=== PATIENT | male | born 1960 | race Caucasian/White ===

== ENCOUNTER 2017-03-28 05:41 | Inpatient (IN) | payer OTHER ==
[2017-03-28] VITALS (10 sets, daily range): BP systolic 123–149; BP diastolic 61–86
[~2017-03-28] VITALS: Ht 180.3 cm; Wt 95.3 kg
[2017-03-28] MEDS ORDERED: ANASTROZOLE1 MG PO (06:48)
[2017-03-28] MEDS ORDERED: Surgicel 4in x 8in TOPIC ONE (07:10)
[2017-03-28] MEDS ORDERED: Bupivacaine 0.5% Inj 30 ml vial INJ ONE (07:10)
[2017-03-28] MEDS ORDERED: LR 1000ml 1,000 ML IVLG SCH (07:36)
--- NOTE | 2017-03-28 07:36 | Anethesia Preoperative Eval ---
Anesthesia Pre-op PMH/ROS General Date of Evaluation: Mar 28, 2017 Time of Evaluation: 07:00 Anesthesiologist: Zaki ASA Score: ASA 3 Mallampati Score Class I : Soft palate, uvula, fauces, pillars visible Class II: Soft palate, uvula, fauces visible Class III: Soft palate, base of uvula visible Class IV: Only hard plate visible Mallampati Classification: Class I Surgeon: Estrella Diagnosis: left renal mass Anesthesia History: none Social History: alcohol use Family History: no anesthesia problems Allergies: Coded Allergies: PENICILLINS (Verified Allergy, Severe, Rash, 03/28/17) Medications: see eMAR Past Medical History Musculoskeletal/Integumentary: Reports: other - breast cancer s/p mastetomy, left LND PSxH Narrative: MASTECTOMY Anesthesia Pre-op Phys. Exam Physician Exam Last Vital Signs Date Time Temp Pulse Resp B/P (MAP) Pulse Ox O2 Delivery O2 Flow Rate FiO2 03/28/17 06:09 97.3 61 18 148/76 97 Room Air Constitutional: NAD Cardiovascular: RRR Respiratory: CTA Airway Exam Mallampati Score: Class II MO: full ROM: full Anesthesia Pre-op A/P Labs hb 15 Studies Pre-op Studies: EKG Risk Assessment & Plan Assessment: ASA 3 Plan: GETA Status Change Before Surgery: Yes - UTI treated by operating urologist Felecia Haines M.D. Mar 28, 2017 07:36
[2017-03-28] MEDS ORDERED: fentaNYL 100 mcg/2 mL IV PRN (07:45)
[2017-03-28] MEDS ORDERED: Hydromorphone 0.5mg/0.5ml inj IVP PRN (07:45)
[2017-03-28] MEDS ORDERED: Meperidine 25mg/0.5ml Inj (FOR RIGORS ONLY) IV PRN (07:45)
--- NOTE | 2017-03-28 07:56 | Pre-Procedure Note/Attestation ---
Pre-Procedure Note/Attestation Complete Prior to Procedure Planned Procedure: left Procedure Narrative: Left laparoscopic partial vs radical nephrectomy Indications for Procedure Pre-Operative Diagnosis: left renal mass Attestation I attest that I discussed the nature of the procedure; its benefits; risks and complications; and alternatives (and the risks and benefits of such alternatives ), prior to the procedure, with the patient (or the patient's legal enrollment eligibility representative). I attest that, if there was a reasonable possibility of needing a blood transfusion, the patient (or the patient's legal enrollment eligibility representative) was given the [facility] standardized written summary, pursuant to the Alex Porum Blood Safety Act ([place] Health and Safety Code # 1645, as amended). I attest that I re-evaluated the patient just prior to the surgery and that there has been no change in the patient's H&P, except as documented below: Cb De La Rosa MD Mar 28, 2017 07:56
[2017-03-28] MEDS ORDERED: Glycopyrrolate 0.2mg/ml 1ml Vial ONE (08:00)
[2017-03-28] MEDS ORDERED: ePHEDrine 50mg/ml Inj ONE (08:00)
[2017-03-28] MEDS ORDERED: fentaNYL 250mcg/5ml ONE (08:00)
[2017-03-28] MEDS ORDERED: Midazolam 2mg/2ml Inj ONE (08:00)
[2017-03-28] MEDS ORDERED: Lidocaine 1% MPF 10mg/ml 5ml ONE (08:00)
[2017-03-28] MEDS ORDERED: LR 1000ml ONE (08:00)
[2017-03-28] MEDS ORDERED: Neostigmine 1mg/ml 10ml Inj ONE (08:00)
[2017-03-28] MEDS ORDERED: Sodium Chloride 10ml vial INJ ONE (08:00)
[2017-03-28] MEDS ORDERED: Dexamethasone 4mg/ml vial ONE (08:00)
[2017-03-28] MEDS ORDERED: Sterile Water Irrig 1000ml IRRIG ONE (08:00)
[2017-03-28] MEDS ORDERED: Propofol 200mg/20ml IV ONE (08:00)
[2017-03-28] MEDS ORDERED: Zemuron 50mg/5ml Inj IV ONE (08:00)
[2017-03-28] MEDS ORDERED: Lacri-Lube Opth Oint 3.5gm ONE (08:07)
[2017-03-28] MEDS ORDERED: ceFAZolin 1gm/50ml Premix 50 ML IV ONE (08:21)
[2017-03-28] MEDS ORDERED: NS Irrig 1000ml IRRIG ONE (08:40)
--- NOTE | 2017-03-28 09:40 | Brief Operative Note ---
Immediate Post Operative Note Operative Note Pre-op Diagnosis: left renal mass Procedure: left laparoscopic nephrectomy Post-op Diagnosis: same Post-op Diagnosis: same as pre-op Surgeon: Anthony De La Rosa Anesthesia: general Specimen: yes Complications: none Condition: stable Fluids: 500 Estimated Blood Loss: minimal Implant(s) used?: No Cb De La Rosa MD Mar 28, 2017 09:40
[2017-03-28] MEDS ORDERED: Metoclopramide 10mg/2ml Inj IVP PRN (09:45)
--- NOTE | 2017-03-28 10:02 | Immediate Post-Op Evaluation ---
Immediate Post-Op Evalulation Immediate Post-Op Evalulation Procedure: lap assisted radical nephrectomy Date of Evaluation: Mar 28, 2017 Time of Evaluation: 09:44 IV Fluids: 1200 LR Blood Products: NONE Estimated Blood Loss: MINIMAL Urinary Output: 75 Blood Pressure Systolic: 149 Blood Pressure Diastolic: 61 Pulse Rate: 57 Respiratory Rate: 18 O2 Sat by Pulse Oximetry: 100 Temperature (Fahrenheit): 97.3 Pain Score (1-10): 1 Nausea: No Vomiting: No Complications NONE Patient Status: awake Hydration Status: adequate Drug: CIPRO, ANCEF Given Within 1 Hr of Incision: Yes Time Given: 07:53 Felecia Haines M.D. Mar 28, 2017 10:02
[2017-03-28 10:18] LABS: BASOPHILS % (AUTO) 0.3 % (0.0-2.0); EOSINOPHILS % (AUTO) 0.8 % (0.0-3.0); LYMPHOCYTES % (AUTO) 11.9 % (20.0-45.0); MEAN CORPUSCULAR HGB CONC 33.4 G/DL (32.0-36.0); MEAN CORPUSCULAR VOLUME 90 FL (80-99); MEAN PLATELET VOLUME 6.5 FL (6.5-10.1); MONOCYTES % (AUTO) 2.3 % (1.0-10.0); NEUTROPHILS % (AUTO) 84.6 % (45.0-75.0); PLATELET COUNT 360 K/UL (150-450); RED BLOOD COUNT 4.98 M/UL (4.70-6.10); RED CELL DISTRIBUTION WIDTH 11.6 % (11.6-14.8); WHITE BLOOD COUNT 14.6 K/UL (4.8-10.8)
[2017-03-28 10:28] LABS: CALCIUM 8.8 mg/dL (8.6-10.2); CREATININE 1.3 mg/dL (0.7-1.2); GLOMERULAR FILTRATION RATE 56.7 mL/min (>60); POTASSIUM 4.4 mEQ/L (3.4-4.9)
[2017-03-28] MEDS ORDERED: Norco 5mg/325mg tab ORAL PRN (13:00)
[2017-03-28] MEDS: D5 1/2NS w/KCl 20mEq 1,000 ML IV SCH (13:19)
--- NOTE | 2017-03-28 14:31 | History and Physical ---
History of Present Illness General Date patient seen: Mar 28, 2017 Reason for Hospitalization: nephrectomy Present Illness HPI 57 year old male with hx of breast cancer, was recently diagnosed with renal cancer. He is admitted for nephrectomy. Post operatively he is admitted for surgical floor for post-op care. Allergies: Coded Allergies: PENICILLINS (Verified Allergy, Severe, Rash, 03/28/17) Medication History Scheduled Anastrozole* (Arimidex*), 1 MG PO DAILY, (Reported) Patient History Healthcare decision maker manda() Resuscitation status Full Code Advanced Directive on File No Past Medical/Surgical History Past Medical/Surgical History: (1) Breast cancer Review of Systems Constitutional: Reports: no symptoms Physical Exam General Appearance: WD/WN Lines, tubes and drains: peripheral, central line HEENT: normocephalic, atraumatic Neck: non-tender, supple Respiratory/Chest: chest wall non-tender, lungs clear Cardiovascular/Chest: normal peripheral pulses, normal rate Abdomen: normal bowel sounds, non tender Genitourinary/Rectal: normal rectal exam, normal prostate exam Extremities: normal range of motion Skin Exam: normal pigmentation Neurologic: computer systems security administrator II-XII grossly normal Last 24 Hour Vital Signs Date Time Temp Pulse Resp B/P (MAP) Pulse Ox O2 Delivery O2 Flow Rate FiO2 03/28/17 13:37 97.3 56 16 138/80 99 56 03/28/17 10:30 97.9 54 14 146/86 98 Nasal Cannula 3.0 03/28/17 10:20 60 16 135/74 95 Nasal Cannula 3.0 03/28/17 10:05 53 18 136/84 95 Nasal Cannula 3.0 03/28/17 10:02 57 18 100 03/28/17 09:55 51 17 141/67 97 Nasal Cannula 3.0 03/28/17 09:44 52 12 139/81 97 Nasal Cannula 3.0 03/28/17 09:39 58 16 142/79 97 Simple Mask 6.0 03/28/17 09:34 97.8 56 16 149/61 97 Simple Mask 6.0 03/28/17 06:09 97.3 61 18 148/76 97 Room Air Intake and Output 03/28/17 03/29/17 19:00 07:00 Intake Total 1300 ml Output Total 105 ml Balance 1195 ml Intake IV Total 1300 ml Output Urine Total 75 ml Estimated Blood Loss 30 ml Laboratory Tests Test 03/28/17 10:10 White Blood Count 14.6 K/UL (4.8-10.8) H Red Blood Count 4.98 M/UL (4.70-6.10) Hemoglobin 15.0 G/DL (14.2-18.0) Hematocrit 44.8 % (42.0-52.0) Mean Corpuscular Volume 90 FL (80-99) Mean Corpuscular Hemoglobin 30.0 PG (27.0-31.0) Mean Corpuscular Hemoglobin Concent 33.4 G/DL (32.0-36.0) Red Cell Distribution Width 11.6 % (11.6-14.8) Platelet Count 360 K/UL (150-450) Mean Platelet Volume 6.5 FL (6.5-10.1) Neutrophils (%) (Auto) 84.6 % (45.0-75.0) H Lymphocytes (%) (Auto) 11.9 % (20.0-45.0) L Monocytes (%) (Auto) 2.3 % (1.0-10.0) Eosinophils (%) (Auto) 0.8 % (0.0-3.0) Basophils (%) (Auto) 0.3 % (0.0-2.0) Sodium Level 139 mEQ/L (135-145) Potassium Level 4.4 mEQ/L (3.4-4.9) Chloride Level 100 mEQ/L (98-107) Carbon Dioxide Level 29 mEQ/L (20-30) Anion Gap 10 (5-15) Blood Urea Nitrogen 14 mg/dL (7-23) Creatinine 1.3 mg/dL (0.7-1.2) H Estimat Glomerular Filtration Rate 56.7 mL/min (>60) Glucose Level 163 mg/dL (74-106) H Calcium Level 8.8 mg/dL (8.6-10.2) Height (Feet): 5 Height (Inches): 11.00 Weight (Pounds): 210 Medications Current Medications Medications (Trade) Dose Ordered Sig/Karli Route PRN Reason Start Time Stop Time Status Last Admin Dose Admin Acetaminophen (Tylenol) 650 mg Q4H PRN ORAL FEVER>100.5 03/28/17 13:00 04/27/17 12:59 Acetaminophen (Tylenol) 650 mg Q6H PRN ORAL Mild Pain (Pain Scale 1-3) 03/28/17 13:00 04/27/17 12:59 Acetaminophen/ Hydrocodone Bitart ([place] 5/325) 1 tab Q4H PRN ORAL Moderate Pain (Pain Scale 4-6) 03/28/17 13:00 04/04/17 12:59 Dextrose/ Electrolytes 1,000 ml @ 100 mls/hr Q10H IV 03/28/17 13:30 04/27/17 13:29 03/28/17 13:19 Docusate Sodium (Colace) 100 mg TWICE A DAY ORAL 03/28/17 18:00 04/27/17 17:59 Hydromorphone HCl (Dilaudid) 1 mg Q3H PRN IVP pain score 4-6 03/28/17 13:00 04/04/17 12:59 Ondansetron HCl (Zofran) 4 mg Q6H PRN IVP Nausea & Vomiting 03/28/17 13:00 04/27/17 12:59 Temazepam (Restoril) 7.5 mg QHS PRN ORAL Insomnia 03/28/17 21:00 04/04/17 20:59 Assessment/Plan Problem List: (1) S/p nephrectomy ICD Codes: Z90.5 - Acquired absence of kidney SNOMED: [id number], [id number] (2) Renal mass ICD Codes: N28.89 - Other specified disorders of kidney and ureter SNOMED: 938867660 Assessment/Plan iv fluids keep the gonzalez check electrolytes symptomatic treatment TAMMIE MESSER Mar 28, 2017 14:31
[2017-03-28] MEDS: HYDROmorphone 1mg/ml Carpuject IVP PRN ×2 (15:27→20:24)
[2017-03-28] MEDS: Docusate 100mg cap ORAL SCH (18:00)
[2017-03-29] VITALS: BP 111/61
[2017-03-29] MEDS: HYDROmorphone 1mg/ml Carpuject IVP PRN (00:02)
[2017-03-29] MEDS: D5 1/2NS w/KCl 20mEq 1,000 ML IV SCH ×4 (01:00→11:17)
[2017-03-29 04:00] VITALS: BP 102/64
[2017-03-29 08:02] LABS: BASOPHILS % (AUTO) 0.4 % (0.0-2.0); EOSINOPHILS % (AUTO) 0.1 % (0.0-3.0); LYMPHOCYTES % (AUTO) 10.8 % (20.0-45.0); MEAN CORPUSCULAR HEMOGLOBIN 31.5 PG (27.0-31.0); MEAN CORPUSCULAR VOLUME 90 FL (80-99); MEAN PLATELET VOLUME 6.4 FL (6.5-10.1); MONOCYTES % (AUTO) 8.7 % (1.0-10.0); PLATELET COUNT 327 K/UL (150-450); RED BLOOD COUNT 4.23 M/UL (4.70-6.10); RED CELL DISTRIBUTION WIDTH 11.8 % (11.6-14.8); WHITE BLOOD COUNT 11.7 K/UL (4.8-10.8)
[2017-03-29 08:18] LABS: ALBUMIN/GLOBULIN RATIO 1.3 (1.0-2.7); CALCIUM 8.5 mg/dL (8.6-10.2); CREATININE 1.8 mg/dL (0.7-1.2); GLOMERULAR FILTRATION RATE 38.9 mL/min (>60); POTASSIUM 4.5 mEQ/L (3.4-4.9); TOTAL PROTEIN 6.2 g/dL (6.6-8.7)
[2017-03-29 08:27] LABS: CRP QUANT 3.8 mg/dL (< 0.5); MAGNESIUM 2.7 mg/dL (1.7-2.5); PHOSPHORUS 3.7 mg/dL (2.5-4.8)
[2017-03-29] MEDS: Docusate 100mg cap ORAL SCH ×2 (09:16→18:55)
--- NOTE | 2017-03-29 09:16 | 48 Hour Post Anesthesia Eval ---
Post Anesthesia Evaluation Procedure: lap assisted radical nephrectomy Date of Evaluation: Mar 29, 2017 Time of Evaluation: 09:15 Blood Pressure Systolic: 126 0: 59 Pulse Rate: 72 Respiratory Rate: 20 Temperature (Fahrenheit): 97.6 O2 Sat by Pulse Oximetry: 99 Airway: patent Nausea: No Vomiting: No Pain Intensity: 3 Hydration Status: adequate Cardiopulmonary Status: stable Mental Status/LOC: patient returned to baseline Follow-up Care/Observations: n/a Post-Anesthesia Complications: none Follow-up care needed: N/A LETI WALLACE M.D. Mar 29, 2017 09:16
--- NOTE | 2017-03-29 10:04 | Pulmonology Progress Note ---
Assessment/Plan Assessment/Plan ASSESSMENT left renal mass s/p 03/28 left laparoscopic nephrectomy hx of left infiltrating ductal breast Ca with s/p mastectomy leukocytosis JOMAR/ elevated creatinine PLAN OF CARE MS floor IVF , increase rate ( creat up) pain management IS, encourage to use abx , leuk trending down bowel regimen ambulate NPO until bowel function returned case discussed and evaluated by supervising physician Subjective Allergies: Coded Allergies: PENICILLINS (Verified Allergy, Severe, Rash, 03/28/17) Subjective leukocytosis trending down,afebrile not nauseous today ( as opposed to 03/28) creat up to 1.8 Objective Last 24 Hour Vital Signs Date Time Temp Pulse Resp B/P (MAP) Pulse Ox O2 Delivery O2 Flow Rate FiO2 03/29/17 09:16 72 20 99 03/29/17 04:00 98.4 81 18 102/64 97 Nasal Cannula 3.0 03/29/17 00:00 98.7 75 18 111/61 95 Nasal Cannula 3.0 03/28/17 20:00 98.0 78 18 123/73 95 Nasal Cannula 3.0 03/28/17 13:37 97.3 56 16 138/80 99 56 03/28/17 10:30 97.9 54 14 146/86 98 Nasal Cannula 3.0 03/28/17 10:20 60 16 135/74 95 Nasal Cannula 3.0 03/28/17 10:05 53 18 136/84 95 Nasal Cannula 3.0 03/28/17 10:02 57 18 100 General Appearance: WD/WN, no acute distress HEENT: normocephalic, atraumatic, anicteric, PERRL Respiratory/Chest: lungs clear, normal breath sounds, no respiratory distress, no accessory muscle use Cardiovascular: normal rate, regular rhythm, no JVD Abdomen: absent bowel sounds, other - few laparascopic incisions with small dressings C/D/I Genitourinary: other - [place] Extremities: no edema Skin: other - left mid anterior and lateral chest wall scar ( postmastectomy) , healed Neurologic/Psychiatric: no motor/sensory deficits, alert, oriented x 3, responsive Laboratory Tests 03/28/17 10:10: White Blood Count 14.6H, Red Blood Count 4.98, Hemoglobin 15.0, Hematocrit 44.8 , Mean Corpuscular Volume 90, Mean Corpuscular Hemoglobin 30.0, Mean Corpuscular Hemoglobin Concent 33.4, Red Cell Distribution Width 11.6, Platelet Count 360, Mean Platelet Volume 6.5, Neutrophils (%) (Auto) 84.6H, Lymphocytes ( %) (Auto) 11.9L, Monocytes (%) (Auto) 2.3, Eosinophils (%) (Auto) 0.8, Basophils (%) (Auto) 0.3, Sodium Level 139, Potassium Level 4.4, Chloride Level 100, Carbon Dioxide Level 29, Anion Gap 10, Blood Urea Nitrogen 14, Creatinine 1.3H, Estimat Glomerular Filtration Rate 56.7, Glucose Level 163H, Calcium Level 8.8 03/29/17 07:15: White Blood Count 11.7H, Red Blood Count 4.23L, Hemoglobin 13.3L, Hematocrit 38.1L, Mean Corpuscular Volume 90, Mean Corpuscular Hemoglobin 31.5H, Mean Corpuscular Hemoglobin Concent 35.0, Red Cell Distribution Width 11.8, Platelet Count 327, Mean Platelet Volume 6.4L, Neutrophils (%) (Auto) 80.0H, Lymphocytes (%) (Auto) 10.8L, Monocytes (%) (Auto) 8.7, Eosinophils (%) (Auto) 0.1, Basophils (%) (Auto) 0.4, Sodium Level 139, Potassium Level 4.5, Chloride Level 101, Carbon Dioxide Level 26, Anion Gap 12, Blood Urea Nitrogen 17, Creatinine 1.8H, Estimat Glomerular Filtration Rate 38.9, Glucose Level 131H, Calcium Level 8.5L, Erythrocyte Sedimentation Rate [Pending], Phosphorus Level 3.7, Magnesium Level 2.7H, Total Bilirubin 0.5, Aspartate Amino Transf (AST/SGOT) 13 , Alanine Aminotransferase (ALT/SGPT) 14, Alkaline Phosphatase 37L, C-Reactive Protein, Quantitative 3.8H, Total Protein 6.2L, Albumin 3.6, Globulin 2.6, Albumin/Globulin Ratio 1.3 Current Medications Medications (Trade) Dose Ordered Sig/Karli Route PRN Reason Start Time Stop Time Status Last Admin Dose Admin Acetaminophen (Tylenol) 650 mg Q4H PRN ORAL FEVER>100.5 03/28/17 13:00 04/27/17 12:59 Acetaminophen (Tylenol) 650 mg Q6H PRN ORAL Mild Pain (Pain Scale 1-3) 03/28/17 13:00 04/27/17 12:59 Acetaminophen/ Hydrocodone Bitart ([place] 5/325) 1 tab Q4H PRN ORAL Moderate Pain (Pain Scale 4-6) 03/28/17 13:00 04/04/17 12:59 Dextrose/ Electrolytes 1,000 ml @ 100 mls/hr Q10H IV 03/28/17 13:30 04/27/17 13:29 03/29/17 01:00 Docusate Sodium (Colace) 100 mg TWICE A DAY ORAL 03/28/17 18:00 04/27/17 17:59 03/29/17 09:16 Hydromorphone HCl (Dilaudid) 1 mg Q3H PRN IVP pain score 4-6 03/28/17 13:00 04/04/17 12:59 03/29/17 00:02 Ondansetron HCl (Zofran) 4 mg Q6H PRN IVP Nausea & Vomiting 03/28/17 13:00 04/27/17 12:59 03/28/17 20:12 Temazepam (Restoril) 7.5 mg QHS PRN ORAL Insomnia 03/28/17 21:00 04/04/17 20:59 Lisa Thomas NP (Vanchtein) Mar 29, 2017 10:04
[2017-03-29 15:27] LABS: ABG PCO2 36.6 mmHg (35.0-45.0)
--- NOTE | 2017-03-29 15:27 | Diagnostic Imaging Report ---
Indication: Shortness of breath Technique: One view of the chest Comparison: none Findings: There is a small amount of free air under the right hemidiaphragm. The right lung and pleural space are clear. There is some patchy atelectasis and possibly consolidation at the left lung base. The left lateral hemidiaphragm is slightly obscured, and there may be a small amount of pleural fluid. The heart size is upper limits of normal. Upper mediastinum is unremarkable. Impression: Free air under the right hemidiaphragm. Per discussion with patient's nurse, patient is recently status post abdominal surgery (nephrectomy), which presumably explains the pneumoperitoneum Patchy atelectasis and possibly consolidation at the left lung base Small left pleural effusion not excludable Patient charge nurse notified of the findings by phone at the time of interpretation
[2017-03-29 15:28] LABS: ABG ALLEN TEST POSITIVE; ABG BASE EXCESS 1.6
[2017-03-29 16:00] VITALS: BP 120/73
[2017-03-29] MEDS ORDERED: DuoNeb 0.5-3(2.5)mg/3ml neb HHN PRN (16:15)
[2017-03-29] MEDS ORDERED: VANCOMYCIN IVPB SCH (17:30)
[2017-03-29] MEDS ORDERED: D5W IVPB SCH (17:30)
[2017-03-29] MEDS ORDERED: DuoNeb 0.5-3(2.5)mg/3ml neb HHN SCH (19:00)
[2017-03-29 20:00] VITALS: BP 121/75
[2017-03-29] MEDS: DuoNeb 0.5-3(2.5)mg/3ml neb HHN SCH (20:41)
[2017-03-30] VITALS: BP 146/84
[2017-03-30] MEDS: D5 1/2NS w/KCl 20mEq 1,000 ML IV SCH
[2017-03-30] MEDS: HYDROmorphone 1mg/ml Carpuject IVP PRN ×2 (00:10→04:55)
[2017-03-30 04:00] VITALS: BP 155/94
[2017-03-30 07:15] LABS: BASOPHILS % (AUTO) 0.5 % (0.0-2.0); LYMPHOCYTES % (AUTO) 9.5 % (20.0-45.0); MEAN CORPUSCULAR HGB CONC 34.2 G/DL (32.0-36.0); MEAN CORPUSCULAR VOLUME 90 FL (80-99); MEAN PLATELET VOLUME 6.6 FL (6.5-10.1); MONOCYTES % (AUTO) 6.9 % (1.0-10.0); PLATELET COUNT 321 K/UL (150-450); RED BLOOD COUNT 4.76 M/UL (4.70-6.10); RED CELL DISTRIBUTION WIDTH 11.7 % (11.6-14.8); WHITE BLOOD COUNT 11.4 K/UL (4.8-10.8)
[2017-03-30 07:20] LABS: CALCIUM 8.8 mg/dL (8.6-10.2); CREATININE 1.7 mg/dL (0.7-1.2); GLOMERULAR FILTRATION RATE 41.6 mL/min (>60); POTASSIUM 4.7 mEQ/L (3.4-4.9)
[2017-03-30] MEDS: Docusate 100mg cap ORAL SCH ×2 (09:17→18:41)
--- NOTE | 2017-03-30 09:55 | Diagnostic Imaging Report ---
Indication: SOB Technique: One view of the chest Comparison: 3 hours earlier Findings: Band of atelectasis is seen in the left midlung. Band of atelectasis is also seen the left lung base. Findings are essentially unchanged from the earlier study. Lungs and pleural spaces are otherwise clear. Small postoperative pneumoperitoneum is again demonstrated Impression: Unchanged, over 3 hours, findings as above. This agrees with the preliminary interpretation provided overnight by Dr. Gonzalez
[2017-03-30] MEDS: DuoNeb 0.5-3(2.5)mg/3ml neb HHN SCH ×3 (10:27→19:48)
[2017-03-30] MEDS ORDERED: Milk of Magnesia 30ml Ud ORAL ONE (10:30)
[2017-03-30] MEDS ORDERED: Tubing IV Secondary IV ONE (10:40)
--- NOTE | 2017-03-30 11:14 | Pulmonology Progress Note ---
Assessment/Plan Assessment/Plan ASSESSMENT left renal mass s/p 03/28 left laparoscopic nephrectomy hx of left infiltrating ductal breast Ca with s/p mastectomy leukocytosis atelectasis possible PNA JOMAR/ elevated creatinine PLAN OF CARE MS floor IVF pain management CL diet,tolerates advance as per surgery a/emetic prn CXR 03/29 with free air under the right hemidiaphragm (related to recent laparoscopic nephrectomy) Patchy atelectasis and possibly consolidation at the left lung base O2 to keep sat above 92% pulmonary toilet abx stressed importance of using IS ambulate Venous Duplex - negative bowel regimen case discussed and evaluated by supervising physician Subjective Allergies: Coded Allergies: PENICILLINS (Verified Allergy, Severe, Rash, 03/28/17) Subjective mild leukocytosis , afebrile on RA sat stable CXR with evidence of PNA 03/29 when had episode of hyposemia, a creat down to 1.7 Objective Last 24 Hour Vital Signs Date Time Temp Pulse Resp B/P (MAP) Pulse Ox O2 Delivery O2 Flow Rate FiO2 03/30/17 09:39 32 03/30/17 09:39 71 18 98 Nasal Cannula 28.0 03/30/17 09:32 72 16 96 Nasal Cannula 28 03/30/17 04:00 98.9 72 19 155/94 94 Nasal Cannula 3.0 03/30/17 00:00 98.2 79 19 146/84 99 Nasal Cannula 3.0 03/29/17 20:44 72 16 2.0 28 03/29/17 20:44 72 16 98 Nasal Cannula 28 03/29/17 20:00 98.1 74 19 121/75 95 Room Air 03/29/17 16:00 98.8 70 20 120/73 96 Nasal Cannula 3.0 Objective General Appearance: WD/WN, no acute distress HEENT: normocephalic, atraumatic, anicteric, PERRL Respiratory/Chest: lungs clear, normal breath sounds, no respiratory distress, no accessory muscle use Cardiovascular: normal rate, regular rhythm, no JVD Abdomen: absent bowel sounds, few laparoscopic incisions with small dressings C/D/I Genitourinary: other - [place] Extremities: no edema Skin: left mid anterior and lateral chest wall scar ( postmastectomy) , healed Neurologic/Psychiatric: no motor/sensory deficits, alert, oriented x 3, responsive Microbiology Date/Time Source Procedure Growth Status 03/28/17 06:35 Nasal Nares MRSA Culture - Final NO METHICILLIN RESISTANT STAPH AUREUS... Complete Laboratory Tests 03/29/17 15:25: Arterial Blood pH 7.456H, Arterial Blood Partial Pressure CO2 36.6, Arterial Blood Partial Pressure O2 80.6, Arterial Blood HCO3 25.2, Arterial Blood Oxygen Saturation 96.1, Arterial Blood Base Excess 1.6, Michael Test Positive 03/30/17 05:10: White Blood Count 11.4H, Red Blood Count 4.76, Hemoglobin 14.7, Hematocrit 43.0 , Mean Corpuscular Volume 90, Mean Corpuscular Hemoglobin 31.0, Mean Corpuscular Hemoglobin Concent 34.2, Red Cell Distribution Width 11.7, Platelet Count 321, Mean Platelet Volume 6.6, Neutrophils (%) (Auto) 83.0H, Lymphocytes ( %) (Auto) 9.5L, Monocytes (%) (Auto) 6.9, Eosinophils (%) (Auto) 0.0, Basophils (%) (Auto) 0.5, Sodium Level 139, Potassium Level 4.7, Chloride Level 101, Carbon Dioxide Level 26, Anion Gap 12, Blood Urea Nitrogen 14, Creatinine 1.7H, Estimat Glomerular Filtration Rate 41.6, Glucose Level 121H, Calcium Level 8.8 Current Medications Medications (Trade) Dose Ordered Sig/Karli Route PRN Reason Start Time Stop Time Status Last Admin Dose Admin Acetaminophen (Tylenol) 650 mg Q4H PRN ORAL FEVER>100.5 03/28/17 13:00 04/27/17 12:59 Acetaminophen (Tylenol) 650 mg Q6H PRN ORAL Mild Pain (Pain Scale 1-3) 03/28/17 13:00 04/27/17 12:59 Acetaminophen/ Hydrocodone Bitart ([place] 5/325) 1 tab Q4H PRN ORAL Moderate Pain (Pain Scale 4-6) 03/28/17 13:00 04/04/17 12:59 03/29/17 20:00 Albuterol/ Ipratropium (DuoNeb 0.5-3(2.5)mg/3ml) 3 ml Q4H PRN HHN Shortness of Breath 03/29/17 16:15 04/03/17 16:14 Albuterol/ Ipratropium (DuoNeb 0.5-3(2.5)mg/3ml) 3 ml TID HHN 03/29/17 18:00 04/03/17 18:59 03/30/17 10:27 Docusate Sodium (Colace) 100 mg TWICE A DAY ORAL 03/28/17 18:00 04/27/17 17:59 03/30/17 09:17 Hydromorphone HCl (Dilaudid) 1 mg Q3H PRN IVP pain score 4-6 03/28/17 13:00 04/04/17 12:59 03/30/17 04:55 Levofloxacin 100 ml @ 100 mls/hr Q24H IVPB 03/29/17 16:00 04/05/17 15:59 03/29/17 16:34 Ondansetron HCl (Zofran) 4 mg Q6H PRN IVP Nausea & Vomiting 03/28/17 13:00 04/27/17 12:59 03/28/17 20:12 Temazepam (Restoril) 7.5 mg QHS PRN ORAL Insomnia 03/28/17 21:00 04/04/17 20:59 Vancomycin HCl 1.75 gm/Dextrose 350 ml @ 150 mls/hr ONCE IVPB 03/29/17 17:30 04/03/17 17:29 03/29/17 18:02 Lisa Thomas NP (Vanchtein) Mar 30, 2017 11:14
--- NOTE | 2017-03-30 12:59 | Diagnostic Imaging Report ---
APPROVED REPORT CPT Code: 73223 Present Symptoms Comments: Post Op R/O DVT BILATERAL UPPER EXTREMITY: Imaging reveals patency of the internal jugular, subclavian, axillary and brachial veins. The cephalic and basilic veins are also patent. Doppler indicates normal spontaneous flow within these venous segments, bilaterally.
--- NOTE | 2017-03-30 12:59 | Diagnostic Imaging Report ---
APPROVED REPORT CPT Code: 14193 Present Symptoms Comments: Post op R/O DVT BILATERAL: Imaging reveals a patent deep venous system bilaterally. There is no evidence of thrombus within the femoral, popliteal or tibial segments. The greater saphenous veins are also within normal limits. Doppler indicates normal spontaneous flow within these segments.
[2017-03-30] MEDS: chlorproMAZINE 25mg tab ORAL PRN ×2 (13:06→18:49)
[2017-03-30 20:00] VITALS: BP 142/86
[2017-03-31] VITALS: BP 146/87
[2017-03-31 04:00] VITALS: BP 144/84
[2017-03-31 06:55] LABS: BASOPHILS % (AUTO) 1.4 % (0.0-2.0); EOSINOPHILS % (AUTO) 0.6 % (0.0-3.0); LYMPHOCYTES % (AUTO) 8.4 % (20.0-45.0); MEAN CORPUSCULAR HEMOGLOBIN 31.5 PG (27.0-31.0); MEAN CORPUSCULAR HGB CONC 34.9 G/DL (32.0-36.0); MEAN CORPUSCULAR VOLUME 90 FL (80-99); MEAN PLATELET VOLUME 6.9 FL (6.5-10.1); MONOCYTES % (AUTO) 9.5 % (1.0-10.0); NEUTROPHILS % (AUTO) 80.2 % (45.0-75.0); PLATELET COUNT 326 K/UL (150-450); RED BLOOD COUNT 4.76 M/UL (4.70-6.10); RED CELL DISTRIBUTION WIDTH 11.4 % (11.6-14.8); WHITE BLOOD COUNT 10.4 K/UL (4.8-10.8)
--- NOTE | 2017-03-31 07:16 | Pulmonology Progress Note ---
Assessment/Plan Assessment/Plan ASSESSMENT left renal mass s/p 03/28 left laparoscopic nephrectomy hx of left infiltrating ductal breast Ca with s/p mastectomy leukocytosis JOMAR/ elevated creatinine PLAN OF CARE MS floor IVF , pain management IS, encourage to use abx , leuk resolved, change to po upon dc bowel regimen , had BM ambulate diet as tolerated,- tolerates dc today case discussed and evaluated by supervising physician Subjective Allergies: Coded Allergies: PENICILLINS (Verified Allergy, Severe, Rash, 03/28/17) Subjective leukocytosis resolved, afebrile on RA sat stable had BM yesterday tolerates diet Objective Last 24 Hour Vital Signs Date Time Temp Pulse Resp B/P (MAP) Pulse Ox O2 Delivery O2 Flow Rate FiO2 03/31/17 04:00 99.3 87 18 144/84 90 Room Air 03/31/17 00:00 99.0 82 18 146/87 94 Room Air 03/30/17 20:00 98.9 86 19 142/86 91 Room Air 03/30/17 19:57 85 18 98 Room Air 03/30/17 19:48 94 18 97 Room Air 03/30/17 14:54 71 20 96 Room Air 21.0 03/30/17 14:54 32 03/30/17 14:50 79 18 96 Room Air 21 03/30/17 09:39 32 03/30/17 09:39 71 18 98 Nasal Cannula 28.0 03/30/17 09:32 72 16 96 Nasal Cannula 28 Objective General Appearance: WD/WN, no acute distress HEENT: normocephalic, atraumatic, anicteric, PERRL Respiratory/Chest: lungs clear, normal breath sounds, no respiratory distress, no accessory muscle use Cardiovascular: normal rate, regular rhythm, no JVD Abdomen: absent bowel sounds, few laparoscopic incisions with small dressings C/D/I Genitourinary: other - [place] Extremities: no edema Skin: left mid anterior and lateral chest wall scar ( postmastectomy) , healed Neurologic/Psychiatric: no motor/sensory deficits, alert, oriented x 3, responsive Laboratory Tests 03/31/17 05:05: White Blood Count 10.4, Red Blood Count 4.76, Hemoglobin 15.0, Hematocrit 42.9, Mean Corpuscular Volume 90, Mean Corpuscular Hemoglobin 31.5H, Mean Corpuscular Hemoglobin Concent 34.9, Red Cell Distribution Width 11.4L, Platelet Count 326, Mean Platelet Volume 6.9, Neutrophils (%) (Auto) 80.2H, Lymphocytes (%) (Auto) 8.4L, Monocytes (%) (Auto) 9.5, Eosinophils (%) (Auto) 0.6, Basophils (%) (Auto ) 1.4 Current Medications Medications (Trade) Dose Ordered Sig/Karli Route PRN Reason Start Time Stop Time Status Last Admin Dose Admin Acetaminophen (Tylenol) 650 mg Q4H PRN ORAL FEVER>100.5 03/28/17 13:00 04/27/17 12:59 Acetaminophen (Tylenol) 650 mg Q6H PRN ORAL Mild Pain (Pain Scale 1-3) 03/28/17 13:00 04/27/17 12:59 Acetaminophen/ Hydrocodone Bitart ([place] 5/325) 1 tab Q4H PRN ORAL Moderate Pain (Pain Scale 4-6) 03/28/17 13:00 04/04/17 12:59 03/29/17 20:00 Albuterol/ Ipratropium (DuoNeb 0.5-3(2.5)mg/3ml) 3 ml Q4H PRN HHN Shortness of Breath 03/29/17 16:15 04/03/17 16:14 Albuterol/ Ipratropium (DuoNeb 0.5-3(2.5)mg/3ml) 3 ml TID HHN 03/29/17 18:00 04/03/17 18:59 03/30/17 19:48 Chlorpromazine (Thorazine) 25 mg Q6H PRN ORAL for hiccups 03/30/17 12:15 04/29/17 12:14 03/30/17 18:49 Docusate Sodium (Colace) 100 mg TWICE A DAY ORAL 03/28/17 18:00 04/27/17 17:59 03/30/17 18:41 Hydromorphone HCl (Dilaudid) 1 mg Q3H PRN IVP pain score 4-6 03/28/17 13:00 04/04/17 12:59 03/30/17 04:55 Levofloxacin 100 ml @ 100 mls/hr Q24H IVPB 03/29/17 16:00 04/05/17 15:59 03/30/17 16:39 Ondansetron HCl (Zofran) 4 mg Q6H PRN IVP Nausea & Vomiting 03/28/17 13:00 04/27/17 12:59 03/28/17 20:12 Temazepam (Restoril) 7.5 mg QHS PRN ORAL Insomnia 03/28/17 21:00 04/04/17 20:59 [facility] CenterLisa [facility]ang NP Mar 31, 2017 07:16
[2017-03-31] MEDS: DuoNeb 0.5-3(2.5)mg/3ml neb HHN SCH (08:51)
[2017-03-31 09:00] VITALS: BP 140/94
[2017-03-31] MEDS: Docusate 100mg cap ORAL SCH (09:36)
[2017-03-31] MEDS ORDERED: LEVAQUIN500 MG ORAL (10:45)
--- NOTE | 2017-04-03 08:15 | Operative Note - Dictated ---
DATE OF OPERATION: 03/28/2017 PREOPERATIVE DIAGNOSIS: Left renal mass. POSTOPERATIVE DIAGNOSIS: Left renal mass. OPERATIONS: Laparoscopic left radical nephrectomy. SURGEON: Cb De La Rosa M.D. ANESTHESIA: General. FINDINGS: Left renal mass. Indications For Surgery: The patient had incidental left renal mass found on the CT scan, enhancing with contrast is suspicious for renal cell carcinoma. Treatment options were explained to him in great length including all potential complications. The patient agreed with the proposed plan. I discussed at length with his . Description of procedure: He was brought to the operating room, placed in left lateral decubitus position, prepped and draped in standard fashion. Under general anesthesia, an incision was made in the subxiphoid area approximately 7 cm, and hand port was placed into the abdomen. Additional two 12 mm trocars were placed and pneumoperitoneum was created to 15 mmHg. After that, the left hemicolon was dissected medially exposing the left renal fossa. Examination of the kidney revealed a tumor in the lower pole with a small projection outside. As most of the tumor was felt to to be inside the kidney, decision was made to proceed with a radical nephrectomy. The kidney was mobilized from the surrounding adhesions and Endo-GILMA was used to pedicle. Ureter was transected with the Endo-GILMA as well. Kidney was removed for pathologic examination. There was no evidence of bleeding. Wound was closed in multiple layers with the fascia and subcuticular closure for the skin . Sponge count and instrument count was correct. Cb De La Rosa M.D. DR: GLORIA JOB#: [id number] CC:
[2017-04-03] MEDS ORDERED: LEVAQUIN500 MG ORAL (08:51)
--- NOTE | 2017-04-03 08:52 | Discharge Summary ---
Discharge Summary Hospital Course Date of Admission Mar 28, 2017 at 05:41 Date of Discharge Mar 31, 2017 at 11:10 Admitting Diagnosis HPI Luis Angel Hodge is a 57 year old male who was admitted on Mar 28, 2017 at 05: 41 for Lt Renal Cancer Hospital Course dc summary #[id number] Discharge Medications New Medications: Levofloxacin* (Levaquin*) 500 Mg Tablet 500 MG ORAL DAILY, #7 TAB Continued Medications: Anastrozole* (Arimidex*) 1 Mg Tablet 1 MG PO DAILY, TAB Discharge Condition Upon Discharge: stable Discharge Disposition Patient was discharged to Home (01) Discharge Diagnoses: William (Donnaein),Lisa JOHNSON Apr 03, 2017 08:52
--- NOTE | 2017-04-04 04:00 | Discharge Summary 2 SIG ---
DATE OF ADMISSION: 03/28/2017 DATE OF DISCHARGE: 03/31/2017 Reason For Admission: 57-year-old male with a history of left renal mass, prior history of breast cancer, admitted for elective surgery/i.e. left nephrectomy. The patient undergone left laparoscopic nephrectomy on 03/28/2017 and was admitted to Med/Surg floor for further management. ADMITTING DIAGNOSES: 1. Left renal mass, 2. Status post on 03/28/2017 left laparoscopic nephrectomy. 3. History of left infiltrating ductal breast cancer with status post mastectomy. Hospital Stay: The patient was on the Med/Surg floor. The patient was on the IV fluid, initially NPO. Pain management provided. Incentive spirometer was on the bedside, and the patient was encouraged to it every hour x 10 times while ion the bed . Initially with leukocytosis, resolved. The patient was on empiric antibiotics. Venous duplex bilateral upper and bilateral lower extremities was negative. Antibiotic changed to oral prior to discharge. Diet was slowly advanced. Patient was able to tolerate diet. Ambulated. The patient had a B[place]eo, home with a leg bag. Pain was managed and controlled. Small dressing, clean, dry, and intact. Ambulated. Pathology of the renal tissue indicated renal cell carcinoma, tumor limited to kidney.The patient was cleared for discharge home and follow up with the surgeon as outpatient. FINAL DIAGNOSES: 1. Left renal cell carcinoma 2. Status post 03/28/2017 left laparoscopic nephrectomy. 3. History of left infiltrating ductal breast cancer with status post mastectomy. 4. Leukocytosis, resolved. DISCHARGE MEDICATIONS: See medication reconciliation list. Discharge Instructions: The patient was discharged home. Follow up with the surgeon as an outpatient. Patient had at home filled per scripts medications ( antibiotic-Cipro, analgesics-Tylenol #3 and stool Softener-Colace), Cb De La Rosa M.D. Lisa ArceRoswell Park Comprehensive Cancer CenterBird N.PJazmin DR: DALLAS/KARSTEN :47 JOB#: [id number] CC: LESLIE
== END 2017-03-31 11:10 | disposition home or self-care (01) | DRG 658 ==
LOC: SDSOVERFLO 05:41 → 3E 10:17
PROC: 0TT14ZZ Resection of Left Kidney, Percutaneous Endoscopic Approach (ICD-10-PCS; principal; 2017-03-28 07:30)
DX: C64.2 Malignant neoplasm of left kidney, except renal pelvis (principal); Z85.3 Personal history of malignant neoplasm of breast; Z88.0 Allergy status to penicillin
CPT/HCPCS: 36415; 36600; 71010; 80048; 80053; 82803; 83735; 84100; 85025; 85651; 86140; 86850; 86900; 86901; 86920; 87081; 93970; 94003; 94150; 94640; 94664; J2250; J2405; J2710; J7620